=== PATIENT | male | born 1990 | race Two or more races ===

== ENCOUNTER → 2024-06-27 | Outpatient (CLI) | payer OTHER ==
[2024-06-27 10:30] LABS: Urine Bacteria None Seen /hpf (None Seen)
[2024-06-27 11:10] LABS: Urine Blood Negative /uL (Negative); Urine Clarity Clear (Clear); Urine Color Colorless (Yellow); Urine Protein, UAD Negative (Negative); Urine Squamous Epithelial Cell None Seen /hpf (<5); Urine Urobilinogen Normal (Negative); Urine WBC < 1 /HPF (0-3)
[2024-06-27 11:37] LABS: Basophils # (auto) 0 10 ^3/uL (0-0.2); Basophils % (auto) 0.7 % (0.0-2.0); Eosinophils # (auto) 0 10 ^3/uL (0-0.8); Eosinophils % (auto) 0.5 % (0.0-7.0); Hematocrit 48.8 % (41.0-53.0); Hemoglobin 15.8 g/dL (13.5-17.5); Lymphocytes # (auto) 2.1 10 ^3/uL (0.4-5.4); Lymphocytes % (auto) 37.9 % (10.0-50.0); Mean Corpuscular Hemoglobin 27.3 pg (28.0-32.0); Mean Corpuscular Hgb Conc. 32.4 g/dL (32.0-36.0); Mean Corpuscular Volume 84.1 fL (80.0-100.0); Monocytes # (auto) 0.3 10 ^3/uL (0-1.3); Monocytes % (auto) 5.8 % (0.0-12.0); Neutrophils # (auto) 3.1 10 ^3/uL (1.6-8.6); Neutrophils % (auto) 55.1 % (37.0-80.0); Nucleated Red Blood Cells % 0.7 %; Platelet Count (auto) 226 10^3/uL (140-450); White Blood Cell 5.6 10^3/uL (4.4-10.8)
[2024-06-27 11:47] LABS: Chloride 104 mmol/L (98-107); Potassium 4.4 mmol/L (3.5-5.1); Sodium 139 mmol/L (136-145)
[2024-06-27 12:43] LABS: Alanine Aminotransferase 30 U/L (7-40); Alkaline Phosphatase 57 U/L (46-116); Anion Gap 12 (5-15); BUN/Creatinine Ratio 11.9 (10.0-20.0); Blood Urea Nitrogen 10 mg/dL (9-23); Carbon Dioxide 23 mmol/L (20-31); Glucose 101 mg/dL (74-106)
[2024-06-27 12:44] LABS: Aspartate Aminotransferase 18 U/L (13-40); Bilirubin, Total 0.4 mg/dL (0.2-1.0); Total Protein 7.6 g/dL (5.7-8.2)
[2024-06-27 12:52] LABS: Calcium 10.4 mg/dL (8.7-10.4)
[2024-06-28 15:54] LABS: Bilirubin, Direct 0.1 mg/dL (<0.3)
[2024-06-28 15:55] LABS: Cholesterol 206 mg/dL (< 200); HDL Cholesterol 44 mg/dL (40-59); LDL Cholesterol 152 mg/dL (< 100); Triglycerides 103 mg/dL (< 150)
== END | disposition home or self-care (01) ==
LOC: LAB 10:06
PROVIDERS: ATTEND Internal Medicine
DX: Z00.01 Encounter for general adult medical examination with abnormal findings (principal); E55.9 Vitamin D deficiency, unspecified; E78.9 Disorder of lipoprotein metabolism, unspecified; Z86.2 Personal history of diseases of the blood and blood-forming organs and certain disorders involving the immune mechanism
CPT/HCPCS: 36415; 80053; 80061; 80076; 81001; 82306; 83036; 84439; 84443; 85025

== ENCOUNTER → 2024-07-27 | Outpatient (CLI) | payer OTHER ==
[2024-07-27 11:40] LABS: INR 0.97 (0.9-1.15); Prothrombin Time 10.3 sec (9.3-11.8)
[2024-07-27 12:05] LABS: Alkaline Phosphatase 69 U/L (46-116); Anion Gap 7 (5-15); Aspartate Aminotransferase 21 U/L (13-40); BUN/Creatinine Ratio 10.5 (10.0-20.0); Bilirubin, Total 0.4 mg/dL (0.2-1.0); Blood Urea Nitrogen 9 mg/dL (9-23); Carbon Dioxide 29 mmol/L (20-31); Chloride 105 mmol/L (98-107); Glucose 92 mg/dL (74-106); Potassium 4.2 mmol/L (3.5-5.1); Sodium 141 mmol/L (136-145)
[2024-07-27 12:06] LABS: Alanine Aminotransferase 45 U/L (7-40); Albumin 5.1 g/dL (3.2-4.8)
[2024-07-27 12:10] LABS: Ferritin 107.7 ng/mL (22-322)
[2024-07-27 12:14] LABS: Carcinoembryonic Antigen 1.38 ng/mL (<=5.0)
[2024-07-28 08:07] LABS: AFP Serum Tumor Marker 3.1 ng/mL (0.0-6.9)
[2024-07-28 10:26] LABS: Hepatitis B Surface Antigen Negative (Negative)
[2024-07-28 10:30] LABS: Hepatitis C Antibody Negative (Negative)
== END | disposition home or self-care (01) ==
LOC: LAB 10:59
PROVIDERS: ATTEND Internal Medicine Gastroenterology
DX: R93.3 Abnormal findings on diagnostic imaging of other parts of digestive tract (principal)
CPT/HCPCS: 36415; 80053; 82105; 82378; 82728; 85610; 86301; 86803; 87340

== ENCOUNTER → 2024-08-10 | Outpatient (CLI) | payer OTHER ==
[2024-08-10 13:29] LABS: Chloride 103 mmol/L (98-107); Potassium 4.4 mmol/L (3.5-5.1); Sodium 140 mmol/L (136-145)
[2024-08-10 13:30] LABS: Anion Gap 8 (5-15); Calcium 10.2 mg/dL (8.7-10.4); Carbon Dioxide 29 mmol/L (20-31)
[2024-08-10 13:35] LABS: BUN/Creatinine Ratio 7.1 (10.0-20.0); Glucose 106 mg/dL (74-106)
[2024-08-10 13:43] LABS: Blood Urea Nitrogen 7 mg/dL (9-23); Creatine Kinase IFCC 312 U/L (46-171)
== END | disposition home or self-care (01) ==
LOC: LAB 12:51
PROVIDERS: ATTEND Internal Medicine
DX: K76.0 Fatty (change of) liver, not elsewhere classified (principal); R16.0 Hepatomegaly, not elsewhere classified
CPT/HCPCS: 36415; 80048; 82550

== ENCOUNTER → 2024-08-29 | Outpatient (CLI) | payer OTHER ==
[2024-08-29 14:22] LABS: Chloride 105 mmol/L (98-107); Potassium 4.2 mmol/L (3.5-5.1); Sodium 140 mmol/L (136-145)
[2024-08-29 14:23] LABS: Anion Gap 8 (5-15); Carbon Dioxide 27 mmol/L (20-31)
[2024-08-29 14:28] LABS: Blood Urea Nitrogen 10 mg/dL (9-23); Glucose 104 mg/dL (74-106)
== END | disposition home or self-care (01) ==
LOC: LAB 13:23
PROVIDERS: ATTEND Internal Medicine
DX: E78.5 Hyperlipidemia, unspecified (principal); K76.0 Fatty (change of) liver, not elsewhere classified
CPT/HCPCS: 36415; 80048; 82550

== ENCOUNTER → 2024-09-08 | Outpatient (CLI) | payer OTHER ==
[2024-09-08 10:56] LABS: Alanine Aminotransferase 29 U/L (7-40); Alkaline Phosphatase 60 U/L (46-116); Anion Gap 6 (5-15); BUN/Creatinine Ratio 14.7 (10.0-20.0); Blood Urea Nitrogen 14 mg/dL (9-23); Calcium 9.8 mg/dL (8.7-10.4); Carbon Dioxide 28 mmol/L (20-31); Glucose 98 mg/dL (74-106); Potassium 4.9 mmol/L (3.5-5.1); Sodium 141 mmol/L (136-145); Total Protein 7.5 g/dL (5.7-8.2)
[2024-09-08 10:57] LABS: Albumin 4.8 g/dL (3.2-4.8); Aspartate Aminotransferase 18 U/L (13-40); Bilirubin, Total 0.4 mg/dL (0.2-1.0); Chloride 107 mmol/L (98-107)
[2024-09-08 12:53] LABS: Creatine Kinase IFCC 235 U/L (46-171)
== END | disposition home or self-care (01) ==
LOC: LAB 10:17
PROVIDERS: ATTEND Internal Medicine
DX: E78.5 Hyperlipidemia, unspecified (principal); K76.0 Fatty (change of) liver, not elsewhere classified
CPT/HCPCS: 36415; 80053; 82550

== ENCOUNTER → 2024-09-08 | Outpatient (CLI) | payer OTHER ==
[2024-09-08 09:33] VITALS: BP 131/81; PULSE 75; RESP 16
--- NOTE | 2024-09-08 09:59 | DVHCARD ---
Cardiology Stress Test [place] Treadmill Stress Test [place] Referring MD: MD Ganga Protocol: Darrius (without cardiolite) Reason for referral: Chest Pain Target heart Rate:@85%: 156 Percent MPHR: 184 METS: 10.1 Resting Heart rate: 75 Resting Blood Pressure: 131/81 Exercise Heart Rate: 155 Exercise Blood Pressure: 210/63 Baseline EKG: Normal sinus rhythm Stress EKG: Sinus tachycardia Functional Capacity: Good Normal Heart Rate Response: Adequate Blood Pressure Response: Hypertensive Clinical response: Non-ischemic Arrhythmia?: No Cardiolite Injected?: No ST-T Changes: Non/Minimal Probability of Inducible Ische: Low Date of Service: September 08, 2024 Billing Provider: MISHEL FRIEND Cardiology Common Codes: PROCEDURE ONLY Treadmill w/o Cardiolite: [id number], INTERP, RPT MISHEL FRIEND September 08, 2024 09:59
== END | disposition home or self-care (01) ==
LOC: XYW 09:12
PROVIDERS: ATTEND Internal Medicine
DX: R00.0 Tachycardia, unspecified (principal); I10 Essential (primary) hypertension; R07.9 Chest pain, unspecified
CPT/HCPCS: 93017

== ENCOUNTER 2024-12-21 10:21 | Outpatient (CLI) | payer MEDICAID ==
[2024-12-21 11:28] LABS: Alanine Aminotransferase 22 U/L (7-40); Albumin 4.6 g/dL (3.2-4.8); Alkaline Phosphatase 56 U/L (46-116); Anion Gap 7 (5-15); BUN/Creatinine Ratio 12.6 (10.0-20.0); Blood Urea Nitrogen 11 mg/dL (9-23); Calcium 9.4 mg/dL (8.7-10.4); Carbon Dioxide 29 mmol/L (20-31); Chloride 103 mmol/L (98-107); Glucose 92 mg/dL (74-106); Potassium 4.1 mmol/L (3.5-5.1); Sodium 139 mmol/L (136-145); Total Protein 6.9 g/dL (5.7-8.2)
[2024-12-21 11:29] LABS: Bilirubin, Total 0.4 mg/dL (0.2-1.0); Creatine Kinase IFCC 204 U/L (46-171)
== END 2024-12-21 17:00 | disposition home or self-care (01) ==
LOC: LAB 10:21
PROVIDERS: ATTEND Internal Medicine
DX: E78.5 Hyperlipidemia, unspecified (principal); R73.03 Prediabetes; K76.0 Fatty (change of) liver, not elsewhere classified
CPT/HCPCS: 36415; 80053; 82550

== ENCOUNTER 2025-03-07 07:30 | Outpatient (CLI) | payer MEDICAID ==
[2025-03-07 07:47] LABS: Hematocrit 46.7 % (41.0-53.0); Hemoglobin 15.4 g/dL (13.5-17.5); Mean Corpuscular Hemoglobin 27.4 pg (28.0-32.0); Mean Corpuscular Volume 83.3 fL (80.0-100.0); Nucleated Red Blood Cells % 0.1 %
[2025-03-07 08:01] LABS: INR 1.0 (0.9-1.15); Partial Thromboplastin Time 28.7 SEC (24.5-34.5); Prothrombin Time 10.6 sec (9.3-11.8)
[2025-03-07 08:09] LABS: Urine Protein, UAD Negative (Negative)
[2025-03-07 08:15] LABS: Alanine Aminotransferase 23 U/L (7-40); Albumin 4.5 g/dL (3.2-4.8); Alkaline Phosphatase 62 U/L (46-116); Anion Gap 7 (5-15); BUN/Creatinine Ratio 6.0 (10.0-20.0); Bilirubin, Total 0.5 mg/dL (0.2-1.0); Blood Urea Nitrogen 6 mg/dL (9-23); Calcium 9.3 mg/dL (8.7-10.4); Carbon Dioxide 29 mmol/L (20-31); Chloride 105 mmol/L (98-107); Glucose 92 mg/dL (74-106); Potassium 4.7 mmol/L (3.5-5.1); Sodium 141 mmol/L (136-145); Total Protein 7.4 g/dL (5.7-8.2)
== END 2025-03-07 17:00 | disposition home or self-care (01) ==
LOC: LAB 07:30
PROVIDERS: ATTEND Internal Medicine
DX: Z01.812 Encounter for preprocedural laboratory examination (principal); E78.5 Hyperlipidemia, unspecified; K76.0 Fatty (change of) liver, not elsewhere classified
CPT/HCPCS: 36415; 80053; 81001; 85025; 85610; 85730